=== PATIENT | female | born 1965 | race Caucasian/White ===

== ENCOUNTER 2016-06-29 17:06 | Emergency (ER) | payer MEDICAID ==
[~2016-06-29] VITALS: Ht 157.5 cm; Wt 78.0 kg
[~2016-06-29 17:06] MED LIST: AUGM875T PO; LYRI150C PO; TOBRO EACH EAR; ZOLP1TAB32 PO
[2016-06-29 17:18] VITALS: BP 124/84; PULSE 107; RESP 15; TEMP 98.7; O2SAT 97
[2016-06-29] MEDS ORDERED: AMBI10TA PO (17:51)
[2016-06-29] MEDS ORDERED: LYRI150C PO (17:51)
[2016-06-29] MEDS ORDERED: PRED10PA PO (17:51)
[2016-06-29] MEDS ORDERED: NAPR220T95 PO (17:51)
--- NOTE | 2016-06-29 18:20 | PD ---
HPI Chief Complaint: Edema Time Seen by Provider: 18:04 Travel History International Travel<30 days: No Contact w/Intl Traveler<30days: No Traveled to known affect area: No History of Present Illness HPI 50-year-old female complains of pain and swelling left leg. Patient states the symptoms started about 3 and a half week ago. Patient states the pain is sharp pain aching pain localized to the left leg. Patient denies any pain radiation. Patient denies any fever chills. Patient denies any injury. Patient denies any chest pain or shortness of breath. Patient has history of fibromyalgia, rheumatoid arthritis. Patient on steroid daily. Patient denies any history of DVT or PE. Patient denies any recent long distant travel by car or by plane. On a scale of 1-10 the pain is a 9. PFSH Past Medical History Arthritis: Yes (RHEUMATOID) Cancer: No Cardiovascular Problems: Yes (MVP) High Cholesterol: Yes Diabetes: No Diminished Hearing: No Fibromyalgia: Yes Hepatitis: No Hiatal Hernia: No Hypertension: No Respiratory: No Immunizations Current: Yes Thyroid Disease: No Influenza Vaccination: Yes ?: Not Menopausal: Yes : 5 Para: 5 Tubal Ligation: Yes Past Surgical History Abdominal Surgery: No Cardiac Surgery: No Ear Surgery: No Endocrine Surgery: No Eye Surgery: No Genitourinary Surgery: No Gynecologic Surgery: Yes (TUBAL LIGATION) Neurologic Surgery: No Oral Surgery: No Pacemaker: No Thoracic Surgery: No Other Surgery: Yes Social History Alcohol Use: Yes (WINE, OCCASIONALLY) Tobacco Use: No Substance Use: No Allergies-Medications (Allergen,Severity, Reaction): Coded Allergies: Latex (Verified Allergy, Severe, FACIAL SWELLING, 06/29/16) Reported Meds & Prescriptions Reported Meds & Active Scripts Active Reported Ambien (Zolpidem Tartrate) 10 Mg Tab 10 Mg PO HS PRN Lyrica (Pregabalin) 150 Mg Cap 150 Mg PO DAILY Aleve (Naproxen Sodium) 220 Mg Tab 440 Mg PO BID PRN Prednisone (21) 10 mg tab Dose Pack (Prednisone) 10 Mg Pack 10 Mg PO DIRECTED Review of Systems General / Constitutional: No: Fever Eyes: No: Visual changes HENT: No: Headaches Cardiovascular: No: Chest Pain or Discomfort Respiratory: No: Shortness of Breath Gastrointestinal: No: Abdominal Pain Genitourinary: No: Dysuria Musculoskeletal: Positive: Pain Skin: No Rash Neurologic: No: Weakness Psychiatric: No: Depression Endocrine: No: Polydipsia Hematologic/Lymphatic: No: Easy Bruising Physical Exam Narrative GENERAL: Well-nourished, well-developed patient. SKIN: Focused skin assessment warm/dry. HEAD: Normocephalic. EYES: No scleral icterus. No injection or drainage. NECK: Supple, trachea midline. No JVD or lymphadenopathy. CARDIOVASCULAR: Regular rate and rhythm without murmurs, gallops, or rubs. RESPIRATORY: Breath sounds equal bilaterally. No accessory muscle use. GASTROINTESTINAL: Abdomen soft, non-tender, nondistended. MUSCULOSKELETAL: Patient has diffuse soft tissue swelling tenderness left thigh and left low leg. Good DP pulses. No redness no heat. Good cap refill. BACK: Nontender without obvious deformity. No CVA tenderness. Neurologic exam normal. Data Data Last Documented VS Vital Signs Date Time Temp Pulse Resp B/P Pulse Ox O2 Delivery O2 Flow Rate FiO2 06/29/16 17:18 98.7 107 15 124/84 97 MDM Medical Decision Making Medical Screen Exam Complete: Yes Emergency Medical Condition: Yes Differential Diagnosis Differential diagnosis including musculoskeletal, lymphedema, DVT, cellulitis, compartment syndrome. Narrative Course 50-year-old female with left leg pain and swelling. Milton Arias MD Jun 29, 2016 18:20
[2016-06-29] MEDS ORDERED: MORPHINE SULFATE 4 MG/ML INJ IV PUSH ONE (18:30)
[2016-06-29] MEDS ORDERED: ONDANSETRON HCL 4 MG/2 ML VIAL IV PUSH ONE (18:30)
[2016-06-29 18:34] VITALS: BP 110/56; PULSE 90; RESP 16; O2SAT 97
[2016-06-29 18:42] LABS: AUTOMATED NEUTROPHIL # 6.9 TH/MM3 (1.8-7.7); BASOPHIL # 0.1 TH/MM3 (0-0.2); BASOPHIL % 0.6 % (0.0-2.0); EOSINOPHIL # 0.1 TH/MM3 (0-0.4); EOSINOPHIL % 0.7 % (0.0-4.0); HEMATOCRIT 38.3 % (35.0-46.0); HEMO FLAGS DIFF FINAL; LYMPH % 24.9 % (9.0-44.0); LYMPHOCYTE # 2.6 TH/MM3 (1.0-4.8); MEAN CELL VOLUME 83.1 FL (80.0-100.0); MEAN CORPUSCULAR HEMOGLOBIN 27.6 PG (27.0-34.0); MEAN CORPUSCULAR HGB CONC 33.2 % (32.0-36.0); MONO % 8.8 % (0.0-8.0); PLATELET COUNT 401 TH/MM3 (150-450); RED BLOOD COUNT 4.61 MIL/MM3 (4.00-5.30); RED CELL DISTRIBUTION WIDTH 14.9 % (11.6-17.2); WHITE BLOOD COUNT 10.6 TH/MM3 (4.0-11.0)
[2016-06-29 19:02] LABS: APTT (PATIENT) 28.5 SEC (24.3-30.1); PROTHROMBIN TIME - PATIENT 10.7 SEC (9.8-11.6)
[2016-06-29 19:42] LABS: CHLORIDE 103 MEQ/L (98-107); POTASSIUM 3.3 MEQ/L (3.5-5.1); SODIUM (NA) 142 MEQ/L (136-145)
[2016-06-29 19:45] LABS: ANION GAP 7 MEQ/L (5-15); BICARBONATE 32.2 MEQ/L (21.0-32.0)
[2016-06-29 19:46] LABS: BLOOD UREA NITROGEN 7 MG/DL (7-18)
[2016-06-29 19:48] LABS: ALT (GPT) 33 U/L (10-53)
[2016-06-29 19:49] LABS: AST (GOT) 19 U/L (15-37); GLOMERULAR FILTRATION RATE 85 ML/MIN (>89)
[2016-06-29 19:50] LABS: TOTAL BILIRUBIN ADULT 0.3 MG/DL (0.2-1.0)
[2016-06-29 19:51] LABS: ALKALINE PHOSPHATASE 83 U/L (45-117)
[2016-06-29 20:09] LABS: CREATINE KINASE 66 U/L (26-192)
--- NOTE | 2016-06-29 20:34 | RADHPO ---
EXAM DATE/TIME: 06/30/2016 01:17 [facility] COMPARISON: No previous studies available for comparison. INDICATIONS : Left leg pain and swelling. MEDICAL HISTORY : Rheumatoid arthritis. Fibromyalgia. SURGICAL HISTORY : Left arm nerve surgery. Left leg fatty tumor removed. ENCOUNTER: Initial ACUITY: 1 month PAIN SCORE: 6/10 LOCATION: Left leg. TECHNIQUE: Venous ultrasound of the leg was performed from the inguinal ligament to the proximal calf. Real-anibal e, color Doppler and spectral tracing, compression and augmentation techniques were used. FINDINGS: There is normal compressibility of the deep venous system from the inguinal region to the proximal ca lf. No echogenic clot is seen in the lumen of the common femoral, femoral, popliteal, and posterior tibial veins. There is a normal response of the venous system to proximal and distal augmentation an d respiration. CONCLUSION: Normal examination. Sherri Robbins MD on June 29, 2016 at 20:32 Board Certified Radiologist. This report was verified electronically.
[2016-06-29] MEDS ORDERED: ACETAMINOPHEN/HYDROcodone 325 MG/5 MG TAB PO ONE (21:00)
--- NOTE | 2016-06-29 21:28 | RADHPO ---
EXAM DATE/TIME: 06/29/2016 21:06 [facility] COMPARISON: No previous studies available for comparison. INDICATIONS : Complains of left knee pain. No known injury. MEDICAL HISTORY : None. SURGICAL HISTORY : None. ENCOUNTER: Initial ACUITY: 1 month PAIN SCORE: 10/10 LOCATION: Left knee FINDINGS: No definite fractures, or dislocations are identified. No definite lytic or sclerotic lesion is seen . The joint spaces are well maintained. CONCLUSION: Unremarkable study. Sherri Robbins MD on June 29, 2016 at 21:26 Board Certified Radiologist. This report was verified electronically.
[2016-06-29] MEDS ORDERED: HYDR-3533 PO (22:00)
--- NOTE | 2016-06-29 22:00 | PD ---
Physical Exam Narrative Patient signed out to me by Dr. Arias to follow-up ultrasound. Please see his documentation for complete details. Briefly, patient has had some pain and swelling to her left leg for the past 4 weeks. She says the pain is worse on the lateral side of her knee and behind the knee. She says she felt a pop several weeks ago when she was bending down to machine pecan picker a toy. She denies any direct injury. She says the leg swells more when she walks on it and it gets better when she rests. She does have a history of rheumatoid arthritis and has had swelling in the past, but this is worse. She has not had any chest pain or shortness of breath. Exam shows pain with flexion and extension of the knee. Joints are stable. Data Data Last Documented VS Vital Signs Date Time Temp Pulse Resp B/P Pulse Ox O2 Delivery O2 Flow Rate FiO2 06/29/16 19:15 16 06/29/16 18:34 90 110/56 97 Room Air 06/29/16 17:18 98.7 Orders Complete Blood Count With Diff (06/29/16 18:14) Comprehensive Metabolic Panel (06/29/16 18:14) Creatine Kinase (Cpk) (06/29/16 18:14) Prothrombin Time / Inr (Pt) (06/29/16 18:14) Act Partial Throm Time (Ptt) (06/29/16 18:14) [place]gren Sedimentation Rate (06/29/16 18:14) Iv Access Insert/Monitor (06/29/16 18:14) Us Leg Venous Doppler (06/29/16 18:14) Morphine Inj (Morphine Inj) (06/29/16 18:30) Ondansetron Inj (Zofran Inj) (06/29/16 18:30) Knee, Complete (4vws) (06/29/16 ) Acetamin-Hydrocod 325-5 Mg ([place] 5-325 (06/29/16 21:00) ^ Papa Bandage (06/29/16 21:43) Labs Laboratory Tests Test 06/29/16 18:30 White Blood Count 10.6 TH/MM3 Red Blood Count 4.61 MIL/MM3 Hemoglobin 12.8 GM/DL Hematocrit 38.3 % Mean Corpuscular Volume 83.1 FL Mean Corpuscular Hemoglobin 27.6 PG Mean Corpuscular Hemoglobin 33.2 % Concent Red Cell Distribution Width 14.9 % Platelet Count 401 TH/MM3 Mean Platelet Volume 8.5 FL Neutrophils (%) (Auto) 65.0 % Lymphocytes (%) (Auto) 24.9 % Monocytes (%) (Auto) 8.8 % Eosinophils (%) (Auto) 0.7 % Basophils (%) (Auto) 0.6 % Neutrophils # (Auto) 6.9 TH/MM3 Lymphocytes # (Auto) 2.6 TH/MM3 Monocytes # (Auto) 0.9 TH/MM3 Eosinophils # (Auto) 0.1 TH/MM3 Basophils # (Auto) 0.1 TH/MM3 CBC Comment DIFF FINAL Differential Comment Prothrombin Time 10.7 SEC Prothromb Time International 1.0 RATIO Ratio Activated Partial 28.5 SEC Thromboplast Time Sodium Level 142 MEQ/L Potassium Level 3.3 MEQ/L Chloride Level 103 MEQ/L Carbon Dioxide Level 32.2 MEQ/L Anion Gap 7 MEQ/L Blood Urea Nitrogen 7 MG/DL Creatinine 0.72 MG/DL Estimat Glomerular Filtration 85 ML/MIN Rate Random Glucose 86 MG/DL Calcium Level 8.9 MG/DL Total Bilirubin 0.3 MG/DL Aspartate Amino Transf 19 U/L (AST/SGOT) Alanine Aminotransferase 33 U/L (ALT/SGPT) Alkaline Phosphatase 83 U/L Total Creatine Kinase 66 U/L Total Protein 7.9 GM/DL Albumin 3.7 GM/DL MDM Supervised Visit with [facility]: No Narrative Course Ultrasound of the leg shows no evidence of blood clots. Labs show no acute abnormalities. X-ray performed of the knee shows no acute abnormalities. Patient given Lortab for pain. Given an Papa wrap. We will discharge with prescription for a few Lortab. 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 Advised to keep this appointment. Advised she may need to return for a follow-up ultrasound if her symptoms do not improve. Patient is comfortable with discharge at this time. Diagnosis Primary Impression: Knee pain Qualified Code: M25.562 - Acute pain of left knee Additional Impression: Leg swelling Patient Instructions: General Instructions, Knee Pain (ED), Leg Edema (ED) Additional Instruction: Follow up with your doctors. Follow up with an orthopedic doctor, Dr. Spain: [address] [place] [phone]. Take pain medicine as needed. Return to the ED as needed for any worsening symptoms. Scripts Hydrocodone-Acetaminophen (Lortab)5-325 Mg Tab1 Tab PO Q6H PRN (PAIN) #10 TAB Ref 0 Prov:Ling Jackson MD 06/29/16 Disposition: 01 DISCHARGE HOME Condition: Stable Ling Jackson MD Jun 29, 2016 22:00
[2016-06-29 22:28] VITALS: BP 109/64; TEMP 98.8
[2016-06-29 22:38] VITALS: RESP 18
== END 2016-06-29 22:49 | disposition home or self-care (01) ==
LOC: PHED 17:06
DX: M25.562 Pain in left knee (principal); M79.89 Other specified soft tissue disorders; M06.9 Rheumatoid arthritis, unspecified; E78.00 Pure hypercholesterolemia, unspecified
CPT/HCPCS: 73564; 80053; 82550; 85025; 85610; 85652; 85730; 93971; 96374; 96375; 99284; J2270; J2405

== ENCOUNTER 2016-11-09 14:36 | Emergency (ER) | payer MEDICAID ==
[~2016-11-09] VITALS: Ht 157.5 cm; Wt 79.4 kg
[~2016-11-09 14:36] MED LIST changes: +AMBI10TA PO; -AUGM875T PO; +HYDR-3533 PO; +NAPR220T95 PO; +PRED10PA PO; -TOBRO EACH EAR; -ZOLP1TAB32 PO
[2016-11-09 14:41] VITALS: BP 138/75; PULSE 75; RESP 18; TEMP 98; O2SAT 99
[2016-11-09] MEDS ORDERED: SODIUM CHLORIDE 0.9% FLUSH 10 ML FLUSH IV FLUSH PRN (15:30)
[2016-11-09] MEDS ORDERED: PANTOPRAZOLE SODIUM 40 MG VIAL IVP ONE (15:30)
[2016-11-09] MEDS ORDERED: ALUMINUM/MAGNESIUM/SIMETH 30 ML CUP PO ONE (15:30)
[2016-11-09] MEDS ORDERED: LIDOCAINE VISCOUS 2% SOLN 15 ML UDC PO ONE (15:30)
--- NOTE | 2016-11-09 15:42 | RADRPT ---
EXAM DATE/TIME: 11/09/2016 15:28 [facility] COMPARISON: No previous studies available for comparison. INDICATIONS : Abdominal pain. MEDICAL HISTORY : Rheumatoid arthritis. Fibromyalgia. SURGICAL HISTORY : None. ENCOUNTER: Initial ACUITY: 1 day PAIN SCORE: 4/10 LOCATION: Bilateral upper quadrant abdomen. FINDINGS: A single erect view of the abdomen demonstrates the lower lungs to be clear. No evidence of free int raperitoneal gas. The visualized bowel loops are unremarkable. CONCLUSION: Negative for free air or obstruction. Larry Rich MD FACR on November 09, 2016 at 15:41 Board Certified Radiologist. This report was verified electronically.
--- NOTE | 2016-11-09 15:46 | PD ---
HPI Chief Complaint: Abdominal Pain Time Seen by Provider: 15:05 Travel History International Travel<30 days: No Contact w/Intl Traveler<30days: No Traveled to known affect area: No History of Present Illness HPI 50-year-old female with a history of rheumatoid arthritis, viral myalgia, presents today with complaints of epigastric pain 4 days. The patient states the pain is in her epigastrium. She reports severe nausea and vomiting. She also reports worsening pain when eating food. There is no reported fevers, chills. There is no reported diarrhea. There is no reported melena or hematochezia. There are no urinary symptoms. The patient still has her gallbladder. She has had no previous abdominal surgery. PFSH Past Medical History Arthritis: Yes (RHEUMATOID) Anxiety: Yes (Panic attacks ) Cancer: No Cardiovascular Problems: Yes (MVP) High Cholesterol: Yes Diabetes: No Diminished Hearing: No Fibromyalgia: Yes Hepatitis: No Hiatal Hernia: No Hypertension: No Respiratory: No Immunizations Current: Yes Thyroid Disease: No Tetanus Vaccination: Unknown Influenza Vaccination: Yes ?: Not LMP: 8 MONTHS AGO Menopausal: Yes : 5 Para: 5 Tubal Ligation: Yes Past Surgical History Abdominal Surgery: No Cardiac Surgery: No Ear Surgery: No Endocrine Surgery: No Eye Surgery: No Genitourinary Surgery: No Gynecologic Surgery: Yes Neurologic Surgery: No Oral Surgery: No Pacemaker: No Thoracic Surgery: No Other Surgery: Yes Social History Alcohol Use: No Tobacco Use: No Substance Use: No Allergies-Medications (Allergen,Severity, Reaction): Coded Allergies: Latex (Verified Allergy, Severe, FACIAL SWELLING, 11/09/16) Reported Meds & Prescriptions Reported Meds & Active Scripts Active Reported Zolpidem (Zolpidem Tartrate) 10 Mg Tab 10 Mg PO HS Zocor (Simvastatin) 40 Mg Tab 40 Mg PO DAILY Lyrica (Pregabalin) 150 Mg Cap 150 Mg PO TID Omeprazole 20 Mg Cap 1 Cap PO DAILY Medrol (Methylprednisolone) 8 Mg Tab 8 Mg PO DAILY Methotrexate Sodium 50 Mg/2 Ml Inj 0.8 Ml SQ WEEKLY Methotrexate Sodium 1 Gm Inj Robaxin (Methocarbamol) 500 Mg Tab 1,000 Mg PO TID PRN Mobic (Meloxicam) 15 Mg Tab 15 Mg PO DAILY Lamotrigine 25 Mg Chew 25 Mg CHEW DAILY Hydrocodone-Acetaminophen 10-325 mg Tab 1 Tab PO Q8HR PRN Folic Acid 1 Mg Tablet 3 Tab PO DAILY Ergocalciferol 50,000 Unit Cap 50,000 Units PO Q7D Voltaren (Diclofenac Sodium) 100 Gm Gel..gram. 1 Appl TOPICAL DAILY Citalopram (Citalopram Hydrobromide) 40 Mg Tab 40 Mg PO DAILY Alprazolam 1 Mg Tab 1 Mg PO DAILY Humira 2-Pack Inj (Adalimumab 2-Pack Inj) 40 Mg/0.8 Ml Syr 40 Mg SQ Q14D Review of Systems Except as stated in HPI: all other systems reviewed are Neg General / Constitutional: No: Fever, Chills HENT: No: Headaches, Lightheadedness Cardiovascular: No: Chest Pain or Discomfort, Palpitations Respiratory: No: Cough, Shortness of Breath Gastrointestinal: Positive: Nausea, Vomiting, Abdominal Pain (epigastric), No : Diarrhea, Hematemesis, Hematochezia Genitourinary: No: Urgency, Frequency, Dysuria Musculoskeletal: No: Weakness, Pain Neurologic: No: Weakness, Headache Physical Exam Narrative GENERAL: Well-developed well-nourished female in no acute rest her distress. SKIN: Focused skin assessment warm/dry. HEAD: Atraumatic. Normocephalic. EYES: No scleral icterus. No injection or drainage. ENT: No nasal bleeding or discharge. Mucous membranes pink and moist. NECK: Trachea midline. Supple. CARDIOVASCULAR: Regular rate and rhythm. No murmur appreciated. RESPIRATORY: No accessory muscle use. Clear to auscultation. Breath sounds equal bilaterally. GASTROINTESTINAL: Abdomen soft, nondistended. The patient had subjective tenderness in her epigastrium. There is no rebound there was mild voluntary guarding. MUSCULOSKELETAL: No obvious deformities. No clubbing. No cyanosis. No edema. NEUROLOGICAL: Awake and alert. No obvious cranial nerve deficits. Motor grossly within normal limits. Normal speech. PSYCHIATRIC: Appropriate mood and affect; insight and judgment normal. Data Data Last Documented VS Vital Signs Date Time Temp Pulse Resp B/P Pulse Ox O2 Delivery O2 Flow Rate FiO2 11/09/16 18:07 98.4 81 18 119/67 98 Room Air Orders Complete Blood Count With Diff (11/09/16 15:25) Comprehensive Metabolic Panel (11/09/16 15:25) Lipase (11/09/16 15:25) Urinalysis - C+S If Indicated (11/09/16 15:25) Iv Access Insert/Monitor (11/09/16 15:25) Ecg Monitoring (11/09/16 15:25) Oximetry (11/09/16 15:25) Pantoprazole Inj (Protonix Inj) (11/09/16 15:30) Sodium Chloride 0.9% Flush (Ns Flush) (11/09/16 15:30) Electrocardiogram (11/09/16 15:25) Abdomen, Upright Only (11/09/16 15:25) Al-Mag Hy-Si 40-40-4 Mg/Ml Liq (Mag-Al P (11/09/16 15:30) Lidocaine 2% Viscous (Xylocaine 2% Visco (11/09/16 15:30) Ct Abd/Pel W Iv Contrast(Rout) (11/09/16 17:04) Iohexol 350 Inj (Omnipaque 350 Inj) (11/09/16 17:29) Labs Laboratory Tests Test 11/09/16 15:50 White Blood Count 11.9 TH/MM3 Red Blood Count 4.83 MIL/MM3 Hemoglobin 13.6 GM/DL Hematocrit 39.9 % Mean Corpuscular Volume 82.6 FL Mean Corpuscular Hemoglobin 28.2 PG Mean Corpuscular Hemoglobin 34.1 % Concent Red Cell Distribution Width 12.8 % Platelet Count 358 TH/MM3 Mean Platelet Volume 8.5 FL Neutrophils (%) (Auto) 65.1 % Lymphocytes (%) (Auto) 27.8 % Monocytes (%) (Auto) 5.7 % Eosinophils (%) (Auto) 0.7 % Basophils (%) (Auto) 0.7 % Neutrophils # (Auto) 7.7 TH/MM3 Lymphocytes # (Auto) 3.3 TH/MM3 Monocytes # (Auto) 0.7 TH/MM3 Eosinophils # (Auto) 0.1 TH/MM3 Basophils # (Auto) 0.1 TH/MM3 CBC Comment DIFF FINAL Differential Comment Urine Collection Type CLEAN CATCH Urine Color YELLOW Urine Turbidity CLEAR Urine pH 6.0 Urine Specific [place] 1.021 Urine Protein NEG mg/dL Urine Glucose (UA) NEG mg/dL Urine Ketones NEG mg/dL Urine Occult Blood SMALL Urine Nitrite NEG Urine Bilirubin NEG Urine Leukocyte Esterase NEG Urine RBC 0-3 /hpf Urine Squamous Epithelial 6-8 /hpf Cells Microscopic Urinalysis Comment CULT NOT INDICATED Sodium Level 138 MEQ/L Potassium Level 3.4 MEQ/L Chloride Level 103 MEQ/L Carbon Dioxide Level 28.1 MEQ/L Anion Gap 7 MEQ/L Blood Urea Nitrogen 7 MG/DL Creatinine 0.54 MG/DL Estimat Glomerular Filtration 119 ML/MIN Rate Random Glucose 99 MG/DL Calcium Level 9.2 MG/DL Total Bilirubin 0.4 MG/DL Aspartate Amino Transf 30 U/L (AST/SGOT) Alanine Aminotransferase 47 U/L (ALT/SGPT) Alkaline Phosphatase 105 U/L Total Protein 8.3 GM/DL Albumin 3.8 GM/DL Lipase 101 U/L [facility] Medical Decision Making Medical Screen Exam Complete: Yes Emergency Medical Condition: Yes Differential Diagnosis Pancreatitis versus peptic ulcer disease versus atypical ACS. Narrative Course 80-year-old female history rheumatoid arthritis, fibromyalgia, presents today with negative epigastric pain since last . The patient states is worsened with food. She denies any fevers, chills. She denies any chest pain, chest pressure. There is no reported shortness of breath or cough. There is no reported melanotic or bloody stools. Patient's laboratory tests are within normal limits. EKG cardiac enzymes show no evidence of acute cardiac process. I believe this is likely a peptic ulcer disease as she is on prednisone and does take anti-rheumatoid medications. She is currently taking a PPI. I will I will add sucralfate to her regimen. She is instructed to have a bland diet. She also instructed to follow up with a GI doctor. She'll be given Dr. Underwood 's information for outpatient follow up. Diagnosis Primary Impression: epigastric pain, suspect peptic ulcer disease. Additional Impressions: Rheumatoid arthritis Fibromyalgia Referrals: Allan Underwood MD Additional Instructions: [place] diet 7-10 days. Follow up with outpatient cadet deck. Feeling worse, bloody stools, black tarry stools. Med/Other Pt SpecificInfo: Prescription(s) given Disposition: 01 DISCHARGE HOME Condition: Stable Tera Baptiste MD Nov 09, 2016 15:46
[2016-11-09 15:59] LABS: AUTOMATED NEUTROPHIL # 7.7 TH/MM3 (1.8-7.7); BASOPHIL # 0.1 TH/MM3 (0-0.2); BASOPHIL % 0.7 % (0.0-2.0); EOSINOPHIL # 0.1 TH/MM3 (0-0.4); EOSINOPHIL % 0.7 % (0.0-4.0); HEMATOCRIT 39.9 % (35.0-46.0); HEMO FLAGS DIFF FINAL; LYMPH % 27.8 % (9.0-44.0); LYMPHOCYTE # 3.3 TH/MM3 (1.0-4.8); MEAN CELL VOLUME 82.6 FL (80.0-100.0); MEAN CORPUSCULAR HEMOGLOBIN 28.2 PG (27.0-34.0); MEAN CORPUSCULAR HGB CONC 34.1 % (32.0-36.0); MONO % 5.7 % (0.0-8.0); NEUT % 65.1 % (16.0-70.0); PLATELET COUNT 358 TH/MM3 (150-450); RED BLOOD COUNT 4.83 MIL/MM3 (4.00-5.30); RED CELL DISTRIBUTION WIDTH 12.8 % (11.6-17.2); WHITE BLOOD COUNT 11.9 TH/MM3 (4.0-11.0)
[2016-11-09 16:00] VITALS: BP 135/73; PULSE 83; RESP 14; O2SAT 100
[2016-11-09 16:01] LABS: BLOOD, URINE SMALL (NEG); GLUCOSE,URINE NEG (NEG); KETONE, URINE NEG (NEG); NITRITE,URINE NEG (NEG)
[2016-11-09 16:02] LABS: METHOD OF COLLECTION CLEAN CATCH; URINE COLOR YELLOW (YELLW/STRAW)
[2016-11-09 16:07] LABS: CHLORIDE 103 MEQ/L (98-107); COMMENT (UR) CULT NOT INDICATED; CULTURE IF INDICATED CULT NOT INDICATED; POTASSIUM 3.4 MEQ/L (3.5-5.1); RBC, URINE 0-3 /hpf (0-3); SODIUM (NA) 138 MEQ/L (136-145)
[2016-11-09 16:10] LABS: ANION GAP 7 MEQ/L (5-15); BICARBONATE 28.1 MEQ/L (21.0-32.0)
[2016-11-09 16:11] LABS: BLOOD UREA NITROGEN 7 MG/DL (7-18)
[2016-11-09 16:13] LABS: AST (GOT) 30 U/L (15-37)
[2016-11-09 16:14] LABS: ALT (GPT) 47 U/L (10-53); GLOMERULAR FILTRATION RATE 119 ML/MIN (>89)
[2016-11-09 16:15] LABS: TOTAL BILIRUBIN ADULT 0.4 MG/DL (0.2-1.0)
[2016-11-09 16:16] LABS: ALKALINE PHOSPHATASE 105 U/L (45-117)
[2016-11-09] MEDS ORDERED: ZOCO40TA PO (16:29)
[2016-11-09] MEDS ORDERED: OMEP20CA2 PO (16:29)
[2016-11-09] MEDS ORDERED: ALPR1TAB3 PO (16:29)
[2016-11-09] MEDS ORDERED: MOBI15TA PO (16:29)
[2016-11-09] MEDS ORDERED: VOLT1GEL4 TOPICAL (16:29)
[2016-11-09] MEDS ORDERED: CITA40TA4 PO (16:29)
[2016-11-09] MEDS ORDERED: [UNRECOGNIZED DRUG - CODE] SQ (16:29)
[2016-11-09] MEDS ORDERED: HYDR-3583 PO (16:29)
[2016-11-09] MEDS ORDERED: HUMI40KI SQ (16:29)
[2016-11-09] MEDS ORDERED: ROBA500T PO (16:29)
[2016-11-09] MEDS ORDERED: FOLI1TAB6 PO (16:29)
[2016-11-09] MEDS ORDERED: MEDR8TAB PO (16:29)
[2016-11-09] MEDS ORDERED: LAMO25CH CHEW (16:29)
[2016-11-09] MEDS ORDERED: ERGO1CAP30 PO (16:29)
[2016-11-09] MEDS ORDERED: ZOLP10TA3 PO (16:29)
[2016-11-09] MEDS ORDERED: METH1INJ12 (16:29)
[2016-11-09] MEDS ORDERED: LYRI150C PO (16:29)
[2016-11-09] MEDS ORDERED: IOHEXOL 350 MG/ML 10 ML VIAL (for RAD DIAG) IV ONE (17:29)
--- NOTE | 2016-11-09 17:49 | RADRPT ---
EXAM DATE/TIME: 11/09/2016 17:25 [facility] COMPARISON: CT TEMPORAL BONE W/O IV CONT, August 07, 2014, 17:18. INDICATIONS : Bilateral upper quadrant pain radiating to back. IV CONTRAST: 95 cc Omnipaque 350 (iohexol) IV ORAL CONTRAST: No oral contrast ingested. RADIATION DOSE: 12.67 CTDIvol (mGy) MEDICAL HISTORY : None SURGICAL HISTORY : Tubal ligation. ENCOUNTER: Initial ACUITY: 4 - 6 days PAIN SCALE: 4/10 LOCATION: Bilateral upper quadrant TECHNIQUE: Volumetric scanning of the abdomen and pelvis was performed. Using automated exposure control and ad justment of the mA and/or kV according to patient size, radiation dose was kept as low as reasonably achievable to obtain optimal diagnostic quality images. DICOM format image data is available electro nically for review and comparison. FINDINGS: The visualized portion of lung base is clear. Examination of the liver demonstrates a 2.0 x 1.9 cm simple cyst in the left lobe. There is a 7 mm si mple cyst in the right lobe. The liver is otherwise unremarkable in appearance. The spleen, pancreas, adrenal glands and kidneys are within normal limits. There is no free intraperitoneal air. No free intraperitoneal fluid is identified. There is no retrop eritoneal lymphadenopathy. The aorta is normal in caliber. The visualized loops of small and large bowel are unremarkable. There is no free fluid within the pelvis. No iliac or inguinal adenopathy is present. The visualized loops of small and large bowel within the pelvis are unremarkable. The exam does demonstrate 2 small simple cyst within the left ovary these measure 1.6 CM and 1.5 CM r espectively. CONCLUSION: 1. There are 2 small simple cysts in the left ovary as above. 2. No definite abnormality to explain the patient's upper abdominal pain identified. Branden Rich MD on November 09, 2016 at 17:42 Board Certified Radiologist. This report was verified electronically.
[2016-11-09 18:07] VITALS: BP 119/67; PULSE 81; RESP 18; TEMP 98.4; O2SAT 98
[2016-11-09] MEDS ORDERED: SUCR1S PO (18:56)
[2016-11-09 19:24] VITALS: BP 121/69
--- NOTE | 2016-11-10 05:13 | EKG ---
Date Performed: 11/09/2016 Time Performed: 15:43:34 PTAGE: 50 years EKG: Sinus rhythm NORMAL ECG Compared to the PREVIOUS TRACING rate has decreased PREVIOUS TRACIN09/14/2013 19.41 DOCTOR: Chalo Wu Interpretating Date/Time 11/10/2016 05:11:39
== END 2016-11-09 19:26 | disposition home or self-care (01) ==
LOC: PHED 14:36
DX: R10.13 Epigastric pain (principal); M06.9 Rheumatoid arthritis, unspecified; M79.7 Fibromyalgia
CPT/HCPCS: 74000; 74177; 80053; 81001; 83690; 85025; 93005; 96374; 99285; C9113; Q9967